=== PATIENT | male | born 1995 | race Caucasian/White ===

== ENCOUNTER 2017-11-30 15:45 | Emergency (ER) | payer OTHER ==
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
[2017-11-30 15:52] VITALS: BP 136/94
[2017-11-30] MEDS ORDERED: HEPATITIS B VIRUS VACCINE-PF 20 MCG/ML INJ IM ONE (18:03)
[2017-11-30] MEDS ORDERED: ONDANSETRON DISINTEGRATING 4 MG TAB PO ONE (18:03)
[2017-11-30] MEDS ORDERED: AZITHROMYCIN 250 MG TAB PO ONE (18:13)
== END 2017-11-30 19:20 | disposition home or self-care (01) ==
LOC: EEVIPCON 15:45 → SANE 19:00
DX: Z04.41 Encounter for examination and observation following alleged adult rape (principal); K62.89 Other specified diseases of anus and rectum
CPT/HCPCS: J0696

== ENCOUNTER 2018-02-01 22:44 | Emergency (ER) | payer MEDICAID ==
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
[2018-02-02 00:35] VITALS: BP 157/108
== END 2018-02-02 01:02 | disposition home or self-care (01) ==
LOC: EDUNIT#
DX: S00.83XA Contusion of other part of head, initial encounter (principal); V13.4XXA Pedal cycle driver injured in collision with car, pick-up truck or van in traffic accident, initial encounter; Y92.410 Unspecified street and highway as the place of occurrence of the external cause